=== PATIENT | male | born 1970 | race Caucasian/White ===

== ENCOUNTER 2020-05-10 11:58 | Emergency (ER) | payer SELFPAY ==
[2020-05-10] MEDS ORDERED: KETOROLAC 30 MG/ML INJ ONE (13:39)
--- NOTE | 2020-05-10 14:26 | RAD REPORT ---
EXAM DESCRIPTION: US - Extremity Venous Uni Ltd - 05/10/2020 2:10 pm CLINICAL HISTORY: Pain;Swelling COMPARISON: None. TECHNIQUE: Real-time sonographic evaluation of the right lower extremity deep venous systems was per formed. FINDINGS: Normal compressibility, flow augmentation, phasic flow and spontaneous flow are identified in the right lower extremity common femoral, superficial femoral, popliteal and posterior tibial vei ns. No intraluminal filling defects seen. Patient indicates area of pain is in the calf. Sonographic evaluation of this region demonstrates a 5 centimeter heterogeneous hypoechoic mass between the gastroc and soleus muscles. This is most likely hematoma. IMPRESSION: No DVT in the right lower extremity. Approximately 5 centimeter heterogeneous mass in the right calf is most likely a hematoma. Follow-up sonography can be performed in 2- 3 months to evaluate for resolution.
--- NOTE | 2020-05-10 15:09 | EDPHYS ---
Physician Documentation [facility] Name: Norman Love Age: 49 yrs Sex: Male : 1970 Arrival Date: 05/10/2020 Time: 12:01 Bed 20 Private MD: ED Physician Gumaro Kelly HPI: 05/10 16:11 This 49 yrs old Male presents to ER via Wheelchair with complaints of Leg tw4 Pain. 16:11 The patient presents with an injury, pain, that is acute. tw4 16:11 The complaints affect the right calf. Context: The problem was sustained at home, tw4 resulted from a mis-step, on a floor edge. Onset: The symptoms/episode began/occurred 3 day(s) ago. Modifying factors: The symptoms are alleviated by elevating leg, remaining still, the symptoms are aggravated by movement, weight bearing. Associated signs and symptoms: The patient has no apparent associated signs or symptoms. Severity of symptoms: At their worst the symptoms were moderate, in the emergency department the symptoms are unchanged. The patient has not experienced similar symptoms in the past. Historical: - Allergies: 12:20 Benadryl; ca1 - Home Meds: 12:20 None [Active]; ca1 - PMHx: 12:20 None; ca1 - PSHx: 12:20 Appendectomy; ca1 - Immunization history:: Adult Immunizations up to date, Flu vaccine is not up to date. - Social history:: Smoking status: Reported history of juuling and/or vaping. ROS: 16:11 Constitutional: Negative for fever, chills, and weight loss, Eyes: Negative for injury, tw4 pain, redness, and discharge, Cardiovascular: Negative for chest pain, palpitations, and edema, Respiratory: Negative for shortness of breath, cough, wheezing, and pleuritic chest pain, Abdomen/GI: Negative for abdominal pain, nausea, vomiting, diarrhea, and constipation, Back: Negative for injury and pain, Skin: Negative for injury, rash, and discoloration, Neuro: Negative for headache, weakness, numbness, tingling, and seizure. 16:11 MS/extremity: Positive for injury or acute deformity, decreased range of motion, pain, swelling, tenderness, Negative for contusion, laceration, paresthesias, puncture, tingling, warmth. Exam: 16:11 Constitutional: This is a well developed, well nourished patient who is awake, alert, tw4 and in no acute distress. Head/Face: Normocephalic, atraumatic. Chest/axilla: Normal chest wall appearance and motion. Nontender with no deformity. No lesions are appreciated. Cardiovascular: Regular rate and rhythm with a normal S1 and S2. No gallops, murmurs, or rubs. Normal PMI, no JVD. No pulse deficits. Respiratory: Lungs have equal breath sounds bilaterally, clear to auscultation and percussion. No rales, rhonchi or wheezes noted. No increased work of breathing, no retractions or nasal flaring. Abdomen/GI: Soft, non-tender, with normal bowel sounds. No distension or tympany. No guarding or rebound. No evidence of tenderness throughout. Back: No spinal tenderness. No costovertebral tenderness. Full range of motion. Neuro: Awake and alert, GCS 15, oriented to person, place, time, and situation. Cranial nerves II-XII grossly intact. Motor strength 5/5 in all extremities. Sensory grossly intact. Cerebellar exam normal. Normal gait. 16:11 Musculoskeletal/extremity: Extremities: noted in the lateral aspect of right calf, right calf, medial aspect of right calf and right knapp: ecchymosis, pain, swelling, tenderness, ROM: no acute changes. Vital Signs: 12:15 BP 103 / 85; Pulse 73; Resp 15 S; Temp 97.1(TE); Pulse Ox 98% on R/A; Weight 72.57 kg ca1 (R); Height 5 ft. 10 in. (177.80 cm) (R); Pain 6/10; 13:43 BP 106 / 80; Pulse 63; Resp 16; Pulse Ox 98% on R/A; mh5 14:35 BP 112 / 79; Pulse 61; Resp 17 S; Pulse Ox 97% on R/A; jd3 12:15 Body Mass Index 22.96 (72.57 kg, 177.80 cm) ca1 MDM: 13:00 Patient medically screened. tw4 16:11 Differential diagnosis: contusion, tendonitis. Data reviewed: vital signs, nurses tw4 notes. Data reviewed: radiologic studies, ultrasound. Data interpreted: Pulse oximetry: Interpretation: normal. Counseling: I had a detailed discussion with the patient and/or guardian regarding: the historical points, exam findings, and any diagnostic results supporting the discharge/admit diagnosis, radiology results. Medication response: Toradol relieved patient's pain. The symptoms have resolved. Response to treatment: the patient's symptoms have markedly improved after treatment. Special discussion: I discussed with the patient/guardian in detail that at this point there is no indication for admission to the hospital. It is understood, however, that if the symptoms persist or worsen the patient needs to return immediately for re-evaluation. 05/10 12:32 Order name: Extremity Venous Uni Ltd tw4 Administered Medications: 13:27 Drug: TORadol 60 mg Route: IM; Site: right gluteus; jd3 14:20 Follow up: Response: No adverse reaction jd3 Disposition: 05/10/20 15:09 Discharged to Home. Impression: HEMATOMA OF RIGHT CALF. - Condition is Stable. - Discharge Instructions: Hematoma. - Prescriptions for Ibuprofen 800 mg Oral Tablet - take 1 tablet by ORAL route every 8 hours As needed take with food; 30 tablet. - Medication Reconciliation Form, Thank You Letter, Antibiotic Education, Prescription Opioid Use form. - Follow up: Private Physician; When: Upon discharge from the Emergency Department; Reason: Recheck today's complaints, Continuance of care, Re-evaluation by your physician. - Problem is new. - Symptoms have improved. Signatures: Dispatcher [employer] Luisito Diaz RN RN jGumaro Mendiola MD MD tw4 Senait Ayers RN RN ca1 Corrections: (The following items were deleted from the chart) 15:26 15:09 05/10/2020 15:09 Discharged to Home. Impression: HEMATOMA OF RIGHT CALF. jd3 Condition is Stable. Forms are Medication Reconciliation Form, Thank You Letter, Antibiotic Education, Prescription Opioid Use. Follow up: Private Physician; When: Upon discharge from the Emergency Department; Reason: Recheck today's complaints, Continuance of care, Re-evaluation by your physician. Problem is new. Symptoms have improved. tw4
--- NOTE | 2020-05-10 15:09 | ER ---
Nurse's Notes [facility] Name: Norman Love Age: 49 yrs Sex: Male : 1970 Arrival Date: 05/10/2020 Time: 12:01 Bed 20 Private MD: Diagnosis: HEMATOMA OF RIGHT CALF Presentation: 05/10 12:15 Chief complaint: Patient states: Did something to my leg, I don't know what I did. Pain ca1 on R calf, Pain from back of R ankle to back of R knee. Reports swelling on R leg, R foot. Started 3 days ago. Coronavirus screen: Client denies travel out of the [place] in the last 14 days. At this time, the client does not indicate any symptoms associated with coronavirus-19. Ebola Screen: Patient negative for fever greater than or equal to 101.5 degrees Fahrenheit, and additional compatible Ebola Virus Disease symptoms Patient denies exposure to infectious person. Patient denies travel to an Ebola-affected area in the 21 days before illness onset. No symptoms or risks identified at this time. Initial Sepsis Screen: Does the patient meet any 2 criteria? No. Patient's initial sepsis screen is negative. Does the patient have a suspected source of infection? No. Patient's initial sepsis screen is negative. Risk Assessment: Do you want to hurt yourself or someone else? Patient reports no desire to harm self or others. Onset of symptoms was May 10, 2020. 12:15 Method Of Arrival: Wheelchair ca1 12:15 Acuity: MARIFER 3 ca1 Historical: - Allergies: 12:20 Benadryl; ca1 - Home Meds: 12:20 None [Active]; ca1 - PMHx: 12:20 None; ca1 - PSHx: 12:20 Appendectomy; ca1 - Immunization history:: Adult Immunizations up to date, Flu vaccine is not up to date. - Social history:: Smoking status: Reported history of juuling and/or vaping. Screenin:04 Abuse screen: Denies threats or abuse. Nutritional screening: No deficits noted. jd3 Tuberculosis screening: No symptoms or risk factors identified. Fall Risk Ambulatory Aid- None/Bed Rest/Nurse Assist (0 pts). Gait- Normal/Bed Rest/Wheelchair (0 pts) Mental Status- Oriented to own ability (0 pts). Total Burns Fall Scale indicates No Risk (0-24 pts). Assessment: 13:01 General: Appears in no apparent distress. uncomfortable, Behavior is calm, cooperative, jd3 appropriate for age. Pain: Complains of pain in right calf Quality of pain is described as tender, pinching. Neuro: Level of Consciousness is awake, alert, obeys commands, Oriented to person, place, time, situation. Cardiovascular: Denies chest pain, Capillary refill < 3 seconds Patient's skin is warm and dry. Respiratory: Airway is patent Respiratory effort is even, unlabored, Respiratory pattern is regular, symmetrical. GI: No signs and/or symptoms were reported involving the gastrointestinal system. : No signs and/or symptoms were reported regarding the genitourinary system. EENT: No signs and/or symptoms were reported regarding the EENT system. Derm: Skin is intact, Skin is dry, Skin is normal, Skin temperature is warm Bruising that is green, on right calf. Musculoskeletal: Circulation, motion, and sensation intact. Range of motion: limited in right knee. 13:51 Reassessment: Patient appears in no apparent distress at this time. No changes from jd3 previously documented assessment. Patient and/or family updated on plan of care and expected duration. Pain level reassessed. Patient is alert, oriented x 3, equal unlabored respirations, skin warm/dry/pink. 14:35 Reassessment: Patient appears in no apparent distress at this time. Patient and/or jd3 family updated on plan of care and expected duration. Pain level reassessed. Patient is alert, oriented x 3, equal unlabored respirations, skin warm/dry/pink. awaiting disposition. 15:25 Reassessment: Patient appears in no apparent distress at this time. Patient and/or jd3 family updated on plan of care and expected duration. Pain level reassessed. Patient is alert, oriented x 3, equal unlabored respirations, skin warm/dry/pink. Patient states feeling better. Vital Signs: 12:15 BP 103 / 85; Pulse 73; Resp 15 S; Temp 97.1(TE); Pulse Ox 98% on R/A; Weight 72.57 kg ca1 (R); Height 5 ft. 10 in. (177.80 cm) (R); Pain 6/10; 13:43 BP 106 / 80; Pulse 63; Resp 16; Pulse Ox 98% on R/A; mh5 14:35 BP 112 / 79; Pulse 61; Resp 17 S; Pulse Ox 97% on R/A; jd3 12:15 Body Mass Index 22.96 (72.57 kg, 177.80 cm) ca1 ED Course: 12:01 Patient arrived in ED. rg4 12:19 Triage completed. ca1 12:20 Arm band placed on right wrist. ca1 12:24 Gumaro Kelly MD is Attending Physician. tw4 12:53 Luisito Ro, RN is Primary Nurse. jd3 13:05 Patient has correct armband on for positive identification. Placed in gown. Bed in low jd3 position. Call light in reach. Side rails up X 1. Pulse ox on. NIBP on. 13:44 Warm blanket given. mh5 14:10 Extremity Venous Uni Ltd US In Process Unspecified. EDMS 15:25 No provider procedures requiring assistance completed. Patient did not have IV access jd3 during this emergency room visit. Administered Medications: 13:27 Drug: TORadol 60 mg Route: IM; Site: right gluteus; jd3 14:20 Follow up: Response: No adverse reaction jd3 Outcome: 15:09 Discharge ordered by . tw4 15:25 Discharged to home via wheelchair. jd3 15:25 Condition: stable 15:25 Discharge instructions given to patient, Instructed on discharge instructions, follow up and referral plans. medication usage, Demonstrated understanding of instructions, follow-up care, medications, Prescriptions given X 1. 15:26 Patient left the ED. jd3 Signatures: Dispatcher [employer] EDIA Alexia Molina 4 Tamra Palacios 5 Luisito Ro, RN RN jd3 Gumaro Kelly MD MD 4 Senait Ayers RN RN ca1 Corrections: (The following items were deleted from the chart) 13:05 13:05 Patient has correct armband on for positive identification. Bed in low position. jd3 Call light in reach. Side rails up X 1. Adult w/ patient. jd3
[2020-05-10 15:35] VITALS: TEMP 97.1
[2020-05-10 15:37] VITALS: BP 112/79; O2SAT 97
== END 2020-05-10 15:26 | disposition home or self-care (01) ==
LOC: ER 11:58
DX: S80.11XA Contusion of right lower leg, initial encounter (principal); X58.XXXA Exposure to other specified factors, initial encounter; Y93.89 Activity, other specified; Y92.009 Unspecified place in unspecified non-institutional (private) residence as the place of occurrence of the external cause; Z88.8 Allergy status to other drugs, medicaments and biological substances; Z87.891 Personal history of nicotine dependence
CPT/HCPCS: 93971; 96372; 99284

== ENCOUNTER 2021-10-16 12:12 | Emergency (ER) | payer SELFPAY ==
[2021-10-16] MEDS ORDERED: NA CHLORIDE 0.9% 1,000 ML ONE (12:51)
[2021-10-16] MEDS ORDERED: ONDANSETRON 4 MG/2 ML VIAL ONE (12:51)
[2021-10-16] MEDS ORDERED: HYDROMORPHONE HCL 1 MG/ML INJ ONE ×2 (12:51→13:14)
[2021-10-16 13:02] LABS: Urine Blood Negative (Negative); Urine Glucose Negative (Negative); Urine Protein Trace (Negative); Urine Specific Gravity 1.015 (1.005-1.030); Urine pH 8.5 (5.0-7.0)
[2021-10-16 13:15] LABS: Absolute Lymphocytes (CBC) 0.7 K/uL (0.7-4.9); Hematocrit 45.9 % (39.6-49.0); Lymphocytes % 4.9 % (15.3-44.8); MPV 6.2 fL (7.6-11.3); RBC Red Blood Cell Count 5.14 M/uL (4.33-5.43)
[2021-10-16 13:21] LABS: Urine Bacteria >50 /HPF (NONE SEEN); Urine RBC <5 /HPF (NONE SEEN)
[2021-10-16 13:28] LABS: Bilirubin Total 1.1 mg/dL (0.2-1.0); Potassium 3.8 mmol/L (3.5-5.1)
[2021-10-16] MEDS ORDERED: CEFTRIAXONE 1000 MG/VIAL ONE (14:12)
[2021-10-16] MEDS ORDERED: KETOROLAC 30 MG/ML INJ ONE (14:12)
--- NOTE | 2021-10-16 14:19 | RAD REPORT ---
EXAM DESCRIPTION: US - Scrotum Testicles - 10/16/2021 2:00 pm CLINICAL HISTORY: Left Testicular pain COMPARISON: None FINDINGS: Right testicle measures 4.6 x 2.4 x 2.9 centimeters. Echotexture is homogeneous. Normal bl ood flow Left testicle measures 4.6 x 2.6 x 2.6 centimeters. Echotexture is homogeneous. Increased blood flow is present to the left testicle and left epididymis. IMPRESSION: Left orchitis/epididymitis
[2021-10-16 15:08] LABS: Platelet Estimate ADEQ; White Blood Cell Scan OK (OK)
[2021-10-16 15:09] LABS: Blood Morphology Comment NOT SEEN (NOT SEEN)
--- NOTE | 2021-10-16 15:19 | RAD REPORT ---
EXAM DESCRIPTION: CT - Abdomen Pelvis W Contrast - 10/16/2021 2:44 pm CLINICAL HISTORY: Abdominal pain left lower quadrant pain COMPARISON: none. TECHNIQUE: Computed axial tomography of the abdomen pelvis was obtained. 100 cc Isovue-300 was admin istered intravenously. Oral contrast was not requested which limits evaluation of bowel and appendix All CT scans are performed using dose optimization technique as appropriate and may include automated exposure control or mA/KV adjustment according to patient size. FINDINGS: The liver, spleen, pancreas, adrenal and kidneys appear unremarkable. There is no evidence of diverticulitis. Within the upper left scrotum there is prominent enhancement Apparent rectal wall thickening IMPRESSION: Prominent enhancement within the upper left scrotum presumably left epididymitis Apparent rectal wall thickening could be secondary to incomplete distention, inflammation or probably less likely a mass. Digital examination is recommended
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
[2021-10-16 15:52] VITALS: TEMP 97.5
[2021-10-16 15:53] VITALS: O2SAT 100
[2021-10-16 15:58] VITALS: BP 129/84
== END 2021-10-16 15:42 | disposition home or self-care (01) ==
LOC: ER 12:12
DX: N45.3 Epididymo-orchitis (principal); Z88.8 Allergy status to other drugs, medicaments and biological substances
CPT/HCPCS: 36415; 74177; 76870; 80053; 81003; 81015; 83690; 85025; 87077; 87086; 87088; 87186; 96374; 96375; 99284; J1170; J2405; J7030; Q9967

== ENCOUNTER 2022-09-23 08:12 | Emergency (ER) | payer SELFPAY ==
--- OUTSIDE RECORDS SUMMARY | 2022-09-23 08:15 | XMS REPORT | Continuity of Care Document ---
:1970 Author Organization [facility] t Address [address] [place] [address] [address] [place] [address] Care Team Providers Name Role Phone Unavailable Unavailable Unavailable Problems This patient has no known problems. Allergies, Adverse Reactions, Alerts This patient has no known allergies or adverse reactions. Medications This patient has no known medications. Procedures This patient has no known procedures. Encounters Start End Encounter Admission Attending Care Care Encounter Source Date/Time Date/Time Type Type Clinicians Facility Department ID 2022-09-22 2022-09-22 Outpatient [facility] [id number] 09:56:43 09:56:43 [id number] [address] [place] Results This patient has no known results.
[2022-09-23] MEDS ORDERED: FLUORESCEIN SODIUM 1 MG/WRAP ONE (08:38)
[2022-09-23] MEDS ORDERED: TETRACAINE HCL 0.5% 4ML OPTH ONE (08:38)
--- NOTE | 2022-09-23 08:52 | ER ---
Nurse's Notes [facility] Name: Norman Love Age: 51 yrs Sex: Male : 1970 Arrival Date: 09/23/2022 Time: 08:12 Bed 2 Private MD: Diagnosis: Unspecified acute conjunctivitis, left eye Presentation: 09/23 08:18 Chief complaint: Patient states: yesterday morning felt something in my left eye , took iw contact out and washed eye out, still felt scratchy , can't keep eye open in the sun, red and swollen , was prescribed a antibiotic drop ciprofloxacin. Coronavirus screen: At this time, the client does not indicate any symptoms associated with coronavirus-19. Ebola Screen: Patient negative for fever greater than or equal to 101.5 degrees Fahrenheit, and additional compatible Ebola Virus Disease symptoms Patient denies exposure to infectious person. Patient denies travel to an Ebola-affected area in the 21 days before illness onset. No symptoms or risks identified at this time. Mechanism of Injury: No Mechanism of Injury. The patient denies any loss of vision. Initial Sepsis Screen: Does the patient meet any 2 criteria? No. Patient's initial sepsis screen is negative. Does the patient have a suspected source of infection? No. Patient's initial sepsis screen is negative. Risk Assessment: Do you want to hurt yourself or someone else? Patient reports no desire to harm self or others. Onset of symptoms was September 22, 2022. 08:18 Method Of Arrival: Ambulatory iw 08:18 Acuity: MARIFER 4 iw Historical: - Allergies: 08:20 Benadryl; iw - Home Meds: 08:21 None [Active]; iw - PSHx: 08:19 Appendectomy; iw - Immunization history:: Adult Immunizations up to date. - Social history:: Smoking status: . - Family history:: not pertinent. Screenin:38 Abuse screen: Denies threats or abuse. Nutritional screening: No deficits noted. ll1 Tuberculosis screening: No symptoms or risk factors identified. 09:05 [facility] ED Fall Risk Assessment (Adult) Score/Fall Risk Level 0 - 2 = Low Risk ll1 Oriented to surroundings, Maintained a safe environment, Educated pt \T\ family on fall prevention, incl call for assistance when getting out of bed, Hourly rounding (assess needs \T\ fall precautionary measures) done. Assessment: 08:37 Reassessment: No changes from previously documented assessment. Patient and/or family ll1 updated on plan of care and expected duration. Pain level reassessed. 08:37 General: Appears uncomfortable, Behavior is calm, cooperative, appropriate for age. ll1 Pain: Complains of pain in left eye. EENT: Eyes are tearing on outer aspect of conjuctiva of left eye, iris of left eye and inner aspect of conjunctiva of left eye Sclera/Cornea are reddened in outer aspect of conjuctiva of left eye, iris of left eye and inner aspect of conjunctiva of left eye. 08:44 Reassessment: No changes from previously documented assessment. Dr. Kay at . ll1 09:01 Reassessment: No changes from previously documented assessment. Patient and/or family ll1 updated on plan of care and expected duration. Pain level reassessed. Patient is alert, oriented x 3, equal unlabored respirations, skin warm/dry/pink. Vital Signs: 08:18 BP 123 / 90; Pulse 91; Resp 16; Temp 98.2; Pulse Ox 100% on R/A; iw 09:04 Pain 2/10; ll1 09:04 Pain Scale: Adult ll1 Visual Acuity: 09:05 ; not done ll1 ED Course: 08:13 Patient arrived in ED. ts1 08:16 Vijay Kay MD is Attending Physician. rt 08:19 Triage completed. iw 08:19 Arm band placed on. iw 08:28 Jania Martins, RN is Primary Nurse. ll1 08:39 Patient has correct armband on for positive identification. Bed in low position. Call ll1 light in reach. Client placed on continuous cardiac and pulse oximetry monitoring. NIBP monitoring applied. environmental monitoring specialist on. 08:44 No provider procedures requiring assistance completed. Patient did not have IV access ll1 during this emergency room visit. Administered Medications: No medications were administered Medication: 08:39 VIS not applicable for this client. ll1 Outcome: 08:51 Discharge ordered by . rt 09:01 Patient left the ED. bd 09:05 Discharged to home ambulatory. ll1 09:05 Condition: stable 09:05 Discharge instructions given to patient, Instructed on discharge instructions, follow up and referral plans. medication usage, Demonstrated understanding of instructions, follow-up care, medications, Prescriptions given X 1. Signatures: Billie Urias Irene, BRY RN iw Jania Martins RN RN ll1 Vijay Kay MD MD rt Gia Dsouza, DENIA PAS ts1 Corrections: (The following items were deleted from the chart) 08:20 08:19 Allergies: Benadryl; iw iw 08:21 08:18 Chief complaint: Patient states: yesterday morning felt something in my left eye iw , took contact out and washed eye out, still felt scratchy , can't keep eye open in the sun, red and swollen iw 08:46 08:44 Reassessment: No changes from previously documented assessment. Dr. Love at ll1ll1 09:04 09:04 Reassessment: No changes from previously documented assessment. Patient and/or ll1 family updated on plan of care and expected duration. Pain level reassessed. Patient is alert, oriented x 3, equal unlabored respirations, skin warm/dry/pink. ll1
--- NOTE | 2022-09-23 08:52 | EDPHYS ---
Physician Documentation [facility] Name: Norman Love Age: 51 yrs Sex: Male : 1970 Arrival Date: 09/23/2022 Time: 08:12 Bed 2 Private MD: ED Physician Vijay Kay HPI: 09/23 09:03 This 51 yrs old Male presents to ER via Ambulatory with complaints of Eye Pain. rt 09:03 Patient presents to the ED with swelling, itching to the left eye. Patient states he rt was wearing contacts, that something hit his eye yesterday. The patient was prescribed ciprofloxacin drops as well as a steroid drop. Patient states that the swelling has gotten worse since starting the antibiotic drop, states that the itching and foreign body sensation has decreased but not completely resolved. Denies other acute complaints at this time, symptoms are mild in severity, no other aggravating or alleviating factors.. 09:03 States that his vision is at baseline, is not currently wearing contacts. rt Historical: - Allergies: 08:20 Benadryl; iw - Home Meds: 08:21 None [Active]; iw - PSHx: 08:19 Appendectomy; iw - Immunization history:: Adult Immunizations up to date. - Social history:: Smoking status: . - Family history:: not pertinent. ROS: 09:03 Constitutional: Negative for fever, chills, and weight loss, Cardiovascular: Negative rt for chest pain, palpitations, and edema, Respiratory: Negative for shortness of breath, cough, wheezing, and pleuritic chest pain, Skin: Negative for injury, rash, and discoloration, Neuro: Negative for headache, weakness, numbness, tingling, and seizure, Psych: Negative for depression, anxiety, suicide ideation, homicidal ideation, and hallucinations. 09:03 Eyes: Positive for foreign body sensation, redness. Exam: 09:03 Constitutional: This is a well developed, well nourished patient who is awake, alert, rt and in no acute distress. Head/Face: Normocephalic, atraumatic. Chest/axilla: Normal chest wall appearance and motion. Nontender with no deformity. No lesions are appreciated. Cardiovascular: Regular rate and rhythm with a normal S1 and S2. No gallops, murmurs, or rubs. Normal PMI, no JVD. No pulse deficits. Skin: Warm, dry with normal turgor. Normal color with no rashes, no lesions, and no evidence of cellulitis. MS/ Extremity: Pulses equal, no cyanosis. Neurovascular intact. Full, normal range of motion. Neuro: Awake and alert, GCS 15, oriented to person, place, time, and situation. Cranial nerves II-XII grossly intact. Motor strength 5/5 in all extremities. Sensory grossly intact. Cerebellar exam normal. Normal gait. 09:03 Eyes: Eyelids normal, scleral injection to the left eye, right eye is clear. Pupils equally round reactive to light, extraocular muscles are intact, no focal areas of fluorescein uptake seen on left eye, intraocular pressure is 10 on left eye.. Vital Signs: 08:18 BP 123 / 90; Pulse 91; Resp 16; Temp 98.2; Pulse Ox 100% on R/A; iw 09:04 Pain 2/10; ll1 09:04 Pain Scale: Adult ll1 Visual Acuity: 09:05 ; not done ll1 MDM: 08:24 Patient medically screened. rt 09:03 Differential diagnosis: Corneal abrasion, corneal ulcer, acute glaucoma, rt conjunctivitis. Data reviewed: vital signs, nurses notes. Counseling: I had a detailed discussion with the patient and/or guardian regarding: the historical points, exam findings, and any diagnostic results supporting the discharge/admit diagnosis, the need for outpatient follow up. Administered Medications: No medications were administered Disposition Summary: 09/23/22 08:51 Discharge Ordered Location: Home rt Problem: new rt Symptoms: are unchanged rt Condition: Stable rt Diagnosis - Unspecified acute conjunctivitis, left eye rt Followup: rt - With: Private Physician - When: 2 - 3 days - Reason: Discharge Instructions: - Discharge Summary Sheet rt - Bacterial Conjunctivitis, Adult rt - How to Use Eye Drops and Eye Ointments rt Forms: - Work release form iw - Medication Reconciliation Form rt - Thank You Letter rt - Antibiotic Education rt - Prescription Opioid Use rt Prescriptions: - Erythromycin 5 mg/gram (0.5 %) Ophthalmic Ointment - apply 1 centimeter by OPHTHALMIC route 3 times per day for 7 days; 1 Each; rt Refills: 0, Product Selection Permitted Signatures: Fatuma Hdz RN RN iw Jania Martins RN RN ll1 Vijay Kay MD MD rt Corrections: (The following items were deleted from the chart) 08:20 08:19 Allergies: Benadryl; iw iw
[2022-09-23 09:06] VITALS: BP 123/90; TEMP 98.2; O2SAT 100
== END 2022-09-23 09:01 | disposition home or self-care (01) ==
LOC: ER 08:12
DX: H10.32 Unspecified acute conjunctivitis, left eye (principal)